=== PATIENT | male | born 1935 | race Caucasian/White ===

== ENCOUNTER → 2016-10-15 | Outpatient (CLI) | payer OTHER, MEDICARE | LOC: MMPC 09:00 | PROVIDERS: ATTEND Family Medicine | DX: H02.825 Cysts of left lower eyelid (principal) | CPT/HCPCS: 99212; G0463 ==

== ENCOUNTER 2018-11-29 15:15 | Inpatient (IN) ==
[2018-11-29] MEDS ORDERED: IPRATROPIUM/ALBUTEROL SULFATE 3 ML NEB NEB ONE (15:57)
[2018-11-29] MEDS ORDERED: Sodium Chloride 0.9% 1,000 ML PRIMARY IV ONE (15:57)
--- NOTE | 2018-11-29 16:20 | EKG ---
[address] [address] Measurements Intervals [place] Rate: 84 P: 76 NC: 169 QRS: 73 QRSD: 80 T: 71 QT: 331 QTc: 372 Interpretive Statements SINUS RHYTHM No previous ECG available for comparison Electronically Signed On 11-29-18 17:19:34 MDT by Elroy Gramajo [email or web address]
--- NOTE | 2018-11-29 17:00 | DI ---
XR CXR 2VW PA/LAT,11/29/2018 3:57 PM: Clinical History: Cough and dyspnea. Previous Exam: None at this facility. Findings: PA and lateral views of the chest are obtained, and demonstrate some mild increased interstitial sim ings and airspace disease. Skeletal structures are unremarkable. There is no effusion. The cardiomediastinum is unremarkable. Impression: Increased density within left lower lobe worrisome for an early left lower lobe pneumonia.
--- NOTE | 2018-11-29 17:03 | DI ---
XR SHOULDER MIN 2VW,11/29/2018 4:10 PM: Clinical History: Right shoulder pain Previous Exam: March 30, 2008 Findings: 4 views of the right shoulder are obtained, and demonstrate anatomic alignment without fractures. The re is mild diffuse osteopenia. There is stable calcific tendinitis. Mild degenerative changes of the acromioclavicular joint are seen. The adjacent right lung and chest wall are unremarkable. Impression: No fracture.
[2018-11-29 17:08] LABS: BLOOD UREA NITROGEN 28 mg/dL (7-22); BUN/CREATININE RATIO 23.33 (6-20); SERUM ALBUMIN 4.1 g/dL (3.5-4.8)
--- NOTE | 2018-11-29 17:13 | DI ---
CT Head WO Contrast,11/29/2018 4:03 PM: Clinical History: Status post fall Previous Exam: None at this facility. Findings: Multiple helically acquired CT images are obtained through the brain without contrast, and demonstrat e mild diffuse age-related volume loss. There is no mass, hemorrhage nor midline shift. There is mucoperiosteal thickening involving the left maxillary sinus with near-complete opacificatio n. Intraorbital structures are unremarkable. No fractures are seen. Impression: 1. No acute intracranial pathology. 2. Left maxillary sinusitis.
[2018-11-29 17:27] LABS: VENOUS PH 7.45 (7.32-7.42)
[2018-11-29 17:40] LABS: BASOPHILS # (AUTO) 0.03 10*3/UL; BASOPHILS % (AUTO) 0.2 % (0-1); EOSINOPHILS # (AUTO) 0.12 10*3/UL; EOSINOPHILS % (AUTO) 0.9 % (0-8); Hematocrit [HCT] 40.1 % (42.0-52.0); Hemoglobin [HGB] 13.4 g/dL (14.0-18.0); LYMPHOCYTES # (AUTO) 1.83 10*3/uL; MEAN CORPUSCULAR HGB CONC 33.4 g/dL (33-37); MEAN CORPUSCULAR VOLUME 90.7 FL (80-90); MEAN PLATELET VOLUME 9.2 FL (7.4-12.2); MONOCYTES # (AUTO) 1.04 10*3/UL (0.3-0.8); MONOCYTES % (AUTO) 8.2 % (5-15); NEUTROPHILS # (AUTO) 9.58 10*3/UL; NEUTROPHILS % (AUTO) 75.8 % (50-80); PLATELET MORPHOLOGY COMMENT NORMAL MORPHOLOGY (NORM); RBC MORPHOLOGY COMMENT NORMAL MORPHOLOGY (NORM); RED BLOOD COUNT 4.42 10^6/uL (4.70-6.10); WBC MORPHOLOGY COMMENT NORMAL MORPHOLOGY (NORM)
[2018-11-29] MEDS ORDERED: cefTRIAXone Inj 2 GM in Sodium Chloride 0.9% 100 ML IV ONE (18:12)
[2018-11-29 18:44] LABS: BILIRUBIN,URINE NEGATIVE (NEG); CLARITY,URINE CLEAR (CLEAR); COLOR,URINE YELLOW (Y); GLUCOSE, URINE (UA) NEGATIVE (NEG); OCCULT BLOOD,URINE Trace-lysed (NEG); PH,URINE 5.5 (5.0-8.5); PROTEIN,URINE 100 mg/dl (NEG)
[2018-11-29 18:49] LABS: RBC,URINE 0-1 /hpf; SQUAMOUS EPITHELIAL CELL,UR RARE; URINE SAMPLE TYPE VOIDED SPECIMEN
[2018-11-29] MEDS ORDERED: LIDOCAINE W/ SODIUM BICARB 0.5 ML SYR SUBD PRN (19:39)
[2018-11-29] MEDS: Sodium Chloride 0.9% 1,000 ML PRIMARY IV SCH (19:55)
--- NOTE | 2018-11-29 20:24 | PDOC ---
HPI - History of Present Illness Date of Service: 11/29/18 Time of Service: 20:00 Chief Complaint: Shortness of breath of 2 weeks' duration History of Present Illness: This is an 83 years old male with medical history significant for history of hypertension, diabetes,hyper lipidemia and hypothyroidism who came into the hospital with history of shortness of breath has been going on for about 2 weeks he said he feels that he is not getting enough air, there is some cough with some phlegm production and intermittent fever. He Said he is somewhat off balance the last 2 weeks and he fell about 2 weeks ago and injured his right shoulder. Because of all the symptoms he came into the hospital. According to ER physician he was wheezing he received a breathing treatment. He said he feels better his breathing is better after the breathing treatment. He said he has a history of asthma since childhood and he's been using his inhaler multiple times a day. It's Not helping much. There is no chest pain. X ray Suggest early pneumonia and hence the admission. He said he's been using his ski poles the last 2 weeks to walk to maintain his balance. Past Medical History Medical History: 1. History of asthma he said since childhood. 2. History of diabetes. 3. History of hyperlipidemia. 4. History of hypertension. 5. History of hypothyroidism Surgical History: 1. History of inguinal hernia. 2. History of tonsillectomy Family History: Reviewed an Not Pertinent Past Social History: Doesn't smoke, doesn't drink, no drugs. Lives with his . Tobacco Use: Never Smoker Do you dip or chew tobacco: Yes (1 dip every few days) In the Past 12 Months, Have Used or Abuse Any of the Following Substance: None Medication / Allergies Home Medications: Home Medications Medication Instructions Recorded Confirmed Centrum Complete Multivit Tab 1 ea PO QOD #30 12/16/11 11/29/18 [place]-3 Fatty Acids/Fish Oil [Fish 1 ea PO BID #30 12/16/11 11/29/18 Oil Softgel] Lancets [Freestyle Lancets] 1 ea MC 6XD #300 ea 01/12/14 11/29/18 Blood Sugar Diagnostic [Freestyle 1 ea IN 6XD #300 strip 01/18/15 11/29/18 Test Strips] celecoxib 200 mg capsule 200 mg PO QDAY 03/03/17 11/29/18 metformin 500 mg tablet 500 mg PO BID #180 tab 11/15/17 11/29/18 atorvastatin 20 mg tablet 20 mg PO QD #90 tab 03/14/18 11/29/18 albuterol sulfate HFA 90 1 puff INH Q6H #1 inhaler 04/13/18 11/29/18 mcg/actuation aerosol inhaler insulin glargine (U-100) 100 30 unit SUBCUT QDAY #15 ml 05/25/18 11/29/18 unit/mL (3 mL) subcutaneous pen lisinopril 5 mg tablet 5 mg PO QD #90 tab 06/13/18 11/29/18 ferrous gluconate 324 mg (36 mg 324 mg PO QDAY #90 tab 07/27/18 11/29/18 iron) tablet Fluticasone/Salmeterol [Advair 2 puff IH BID 11/29/18 11/29/18 250-50 Diskus] Allergies/Adverse Reactions: Allergies Allergy/AdvReac Type Severity Reaction Status Date / Time No Known Drug Allergies Allergy NOT Verified 11/30/18 06:25 APPLICABLE Review of Systems - Review of Systems All Systems: Reviewed & No Additional Complaints Except as Stated Exam - Vitals Vital Signs: Vital Signs Temperature 100.7 F Temperature Source Temporal Artery Scan Pulse Rate [Pulse Oximeter 96 Right] Pulse Rate 98 Respiratory Rate 20 Blood Pressure [Left Arm] 154/81 Pulse Ox 100 Oxygen Delivery Method Room Air Height 5 ft 7 in Weight 158 lb 3.2 oz - General General Appearance: No Acute Distress, Cooperative - Head Head Exam: Normal Inspection - Eye Eye Exam: POSITIVE: Normal Appearance - ENT ENT Exam: POSITIVE: Normal Exam - Neck Neck Exam: Normal Inspection - Respiratory Additional Respiratory Exam Details: Some wheezing here in the right lower lung base. Decreased breath sound on the left side. - Cardiovascular Cardiovascular Exam: POSITIVE: RRR - GI/Abdominal GI/Abdominal Exam: POSITIVE: Normal Bowel Sounds, Non Tender, Non Distended, Soft, No Organomegaly - Rectal Rectal Exam: POSITIVE: Deferred - External Exam: POSITIVE: Deferred - Extremities Extremities Exam: POSITIVE: Normal Inspection - Back Back Exam: POSITIVE: Normal Inspection - Neurological Neurological Exam: POSITIVE: Alert, Oriented x 3, CN II-XII Intact, No Facial Droop, Speech Intact / Clear - Psychiatric Psychiatric Exam: POSITIVE: Normal Affect Results - Labs CBC and BMP: 11/30/18 04:45 11/30/18 04:45 - EKG Data -: EKG Interpreted by Me Rate: Normal EKG Shows Normal: Sinus Rhythm - EKG Data EKG Interpretation: Normal EKG - Imaging Status: Report Reviewed by Me (CT head no acute intracranial pathology Chest X ray Increased density within left lower lobe worrisome for an early left lower lobe pneumonia.) Assessment and Plan - Patient Problems (1) Pneumonia Current Visit: Yes Status: Acute Comment: I think will treat him as such with the Rocephin and Zithromax. he is been falling the last few weeks, his CT head is negative will ask PT/OT to work with him. Code(s): J18.9 - Pneumonia, unspecified organism (2) Asthma Current Visit: No Status: None Comment: There is probably an element of exacerbation of his asthma likely secondary to pneumonia. Continue breathing treatment will give him some steroid also. (3) Type 2 diabetes mellitus without complication Current Visit: No Status: Acute Onset Date: 03/13/15 Comment: Continue with Lantus and put him also on sliding scale because of the steroid. 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
[2018-11-29] MEDS: methylPREDNISolone 40 MG/1 ML VIAL IVP SCH (20:29)
[2018-11-29] MEDS: Insulin Glargine SoloStar Inj 100 UNIT/ML INSULN.PEN SUBCUT SCH (20:29)
[2018-11-29] MEDS: ATORVASTATIN 20 MG TABLET PO SCH (20:30)
[2018-11-29] MEDS ORDERED: metFORMIN 500 MG TABLET PO SCH (21:00)
[2018-11-29] MEDS: FLUTICASONE/SALMETEROL 250/50 UD INHALER INH SCH (22:10)
--- NOTE | 2018-11-30 03:35 | PDOC ---
Dyspnea HPI - General Chief Complaint: Dyspnea Stated Complaint: dyspnea, asthma, frequent falls, shoulder pain Date Seen by Provider: 11/29/18 Time Seen by Provider: 15:45 Source: POSITIVE: Patient, Spouse Exam Limitations: POSITIVE: No limitations Treatment Prior to Arrival: REPORTS: None Nurse's Notes Reviewed & Considered: Yes - History of Present Illness Initial Comments: The patient is an 83-year-old male who is brought to the emergency room by his . Patient states that "my asthma is getting worse". Patient states he has an history of asthma for which he takes Advair HFA 2 puffs twice daily and he also takes Ventolin inhaler on a P what are and basis. Patient states that he's been progressively short of breath and has uses inhaler about 10 times today. He had a fever of 101 earlier this evening. He has a cough productive of mucoid sputum. No chest pain. He states he has been wheezing. He also states that he has been "falling" lately. He states that it appears to him that when he stops he couldn't continues propelling forward and he loses his balance. He fell about a week ago and injured his right shoulder and he complains of pain over the area of the right humeral head. No chills. History of diabetes mellitus. Body Location Affected: REPORTS: Chest Timing: REPORTS: Gradual, Getting Worse Duration: >24 hours (2-3 days) Severity: Moderate Quality: REPORTS: "Pain" (Pain to right shoulder after falling a week ago) Initiating Event: REPORTS: Upper Respiratory Illness Context: REPORTS: Exertion (Dyspnea on exertion) Exacerbated By: REPORTS: Exertion, Coughing Associated Symptoms: REPORTS: Fever Similar Symptoms Previously: No Recently seen/treated/hospitalized: No Any Prior Injuries Related to Current Complaint?: No - Patient Home Medications Home Medications: Home Medications Centrum Complete Multivit Tab 1 ea PO QOD #30 12/16/11 [place]-3 Fatty Acids/Fish Oil [Fish Oil Softgel] 1 ea PO BID #30 12/16/11 Lancets [Freestyle Lancets] 1 ea MC 6XD #300 ea 01/12/14 Blood Sugar Diagnostic [Freestyle Test Strips] 1 ea IN 6XD #300 strip 01/18/15 celecoxib 200 mg capsule 200 mg PO QDAY 03/03/17 metformin 500 mg tablet 500 mg PO BID #180 tab 11/15/17 atorvastatin 20 mg tablet 20 mg PO QD #90 tab 03/14/18 albuterol sulfate HFA 90 mcg/actuation aerosol inhaler 1 puff INH Q6H #1 inhaler 04/13/18 insulin glargine (U-100) 100 unit/mL (3 mL) subcutaneous pen 30 unit SUBCUT QDAY #15 ml 05/25/18 lisinopril 5 mg tablet 5 mg PO QD #90 tab 06/13/18 ferrous gluconate 324 mg (36 mg iron) tablet 324 mg PO QDAY #90 tab 07/27/18 Fluticasone/Salmeterol [Advair 250-50 Diskus] 2 puff IH BID 11/29/18 - Patient Allergies Allergies/Adverse Reactions: Allergies Allergy/AdvReac Type Severity Reaction Status Date / Time No Known Drug Allergies Allergy NOT Verified 11/29/18 15:16 APPLICABLE Past Medical History - heen HEENT History: Hard of Hearing Cardiovascular History: Hyperlipidemia Respiratory History: Asthma Gastrointestinal History: GERD Genitourinary History: Renal Disease Endocrine History: Type 2 Diabetes (oral) Musculoskeletal History: Denies History Neurological History: Other (please comment) Additional Neurological History: memory loss Blood Disorders: Denies History Psychiatric History: Denies History History of Sexually Transmitted Diseases: No Male Reproductive History: Denies History Cancer History: Denies History In Past Year Been Physically Harmed or Verbally Threatened: No History of MDRO: No History of Other Communicable Diseases: No Tobacco Use: Never Smoker Alcohol Use: None In the Past 12 Months, Have Used or Abuse Any Substance: None Previous Surgical History: Yes Type / Date of Surgery: double hernia, prostate Significant Family History: No pertinent family hx Past Medical History Reviewed: Reviewed - No Changes ROS - Limitations ROS Limitations: No Limitations Cardiovascular: REPORTS: Denies Cardiac Symptoms Respiratory: REPORTS: Cough Productive, Shortness Of Breath, Wheezing Neurological: REPORTS: Denies Neuro Symptoms Gastrointestinal: REPORTS: Denies GI Symptoms Endocrine: REPORTS: Denies Symptoms Musculoskeletal: REPORTS: Denies MS Symptoms Genitourinary: REPORTS: Denies Symptoms Eyes: REPORTS: Denies Symptoms ENT: REPORTS: Denies Symptoms Skin: REPORTS: Denies Skin Symptoms Lympathic: REPORTS: Denies Lympathic Symptoms Immunologic: POSITIVE: Denies Symptoms Psychiatric: POSITIVE: Denies Psych Symptoms Dyspnea Physical Exam - General Appearance General Appearance: REPORTS: Alert, Cooperative, No Acute Distress, No Evidence of Trauma - HEENT HEENT: POSITIVE: Head Inspection Nml, Eyes Inspection Nml, Ears Inspection Nml, Nose Inspection Nml, Oral/Dental Inspect. Nml, Pharynx Inspect. Nml, PERRL, EOMI - Neck Neck: REPORTS: Normal Inspection, No Carotid Bruit - Respiratory Respiratory: REPORTS: No Pleuritic Chest Pain, Speaks Full Sentences, No Pain on Inspiration, Wheezes, Rales. DENIES: No Respiratory Distress (Mild), Breath Sounds Normal (Wheezing, expiratory, right and left lung coffey with rales left lung base), Respiratory Distress (Mild) - Cardiovascular Cardiovascular: REPORTS: Regular Rate and Rhythm, Heart Sounds Normal, Equal Pulses, Strong Pulses, No Murmur, No Gallop, No Friction Rub, No JVD Peripheral Pulses: Radial (R): 2+, Radial (L): 2+ - Abdomen Abdomen: Soft: (All Quadrants), Normal Bowel Sounds: (All Quadrants), Denies Tenderness: (All Quadrants), No Splenomegaly: (All Quadrants), No Hepatomegaly: (All Quadrants), No Guarding: (All Quadrants), No Rebound: (All Quadrants), No Palpable Pulse: (All Quadrants), No Palpabale Mass: (All Quadrants), No Distention: (All Quadrants), No Rigidity: (All Quadrants) - Skin Skin: REPORTS: Intact, Normal For Race, Warm, Dry, No Rash - Extremities Extremity: Non-Tender: (LUE), (RLE), (LLE), Normal ROM: (All Extremities), No rmal Inspection: (All Extremities) Additional Extremities Details: Extremity examination normal except for some pain on direct palpation right shoulder over area and will head laterally. Range of motion is intact. No deformities. No sensory motor or vascular deficits. 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 X-ray right shoulder shows no fractures or dislocations. CT scan head without contrast normal Lab Results Reviewed by Me: Yes CBC and BMP: 11/29/18 17:25 11/29/18 16:20 Lab Results:: Laboratory Results 11/29/18 11/29/18 11/29/18 16:20 16:20 16:20 WBC RBC Hgb Hct MCV MCH MCHC RDW Std Deviation RDW Coeff of Abdoulaye Plt Count MPV Immature Gran % (Auto) Neut % (Auto) Lymph % (Auto) [place] % (Auto) Eos % (Auto) Baso % (Auto) Immature Gran # (Auto) Neut # (Auto) Lymph # (Auto) [place] # (Auto) Eos # (Auto) Baso # (Auto) WBC Morphology Comment Plt Morphology Comment RBC Morph Comment PT INR D-Dimer VBG pH VBG pCO2 VBG HCO3 VBG Base Excess Sodium Potassium Chloride Carbon Dioxide Anion Gap BUN Creatinine BUN/Creatinine Ratio Glucose Calculated Osmolality Lactic Acid 1.0 Calcium Magnesium 1.9 Total Bilirubin AST ALT Alkaline Phosphatase Troponin I < 0.012 C-Reactive Protein 16.8 H NT-Pro-B Natriuret Pep 70.2 Total Protein Albumin Globulin Albumin/Globulin Ratio Ur Collection Type Urine Color Urine Clarity Urine pH Ur Specific [place] Urine Protein Urine Glucose (UA) Urine Ketones Urine Occult Blood Urine Nitrate Urine Bilirubin Urine Urobilinogen Ur Leukocyte Esterase Urine RBC Urine WBC Ur Squamous Epith Cells Ur Renal Epithelial Cell Urine Crystals Urine Bacteria Urine Casts Urine Mucus Urine Trichomonas Urine Yeast Ur Culture Indicated? 11/29/18 11/29/18 11/29/18 16:20 16:23 17:25 WBC RBC Hgb Hct MCV MCH MCHC RDW Std Deviation RDW Coeff of Abdoulaye Plt Count MPV Immature Gran % (Auto) Neut % (Auto) Lymph % (Auto) [place] % (Auto) Eos % (Auto) Baso % (Auto) Immature Gran # (Auto) Neut # (Auto) Lymph # (Auto) [place] # (Auto) Eos # (Auto) Baso # (Auto) WBC Morphology Comment Plt Morphology Comment RBC Morph Comment PT 15.3 H INR 1.33 D-Dimer VBG pH 7.45 H VBG pCO2 37 L VBG HCO3 26 VBG Base Excess 2 Sodium 139 Potassium 4.6 Chloride 104 Carbon Dioxide 25 Anion Gap 10 BUN 28 H Creatinine 1.2 BUN/Creatinine Ratio 23.33 H Glucose 141 H Calculated Osmolality 295.0 H Lactic Acid Calcium 9.7 Magnesium Total Bilirubin 0.7 AST 32 ALT 17 L Alkaline Phosphatase 105 Troponin I C-Reactive Protein NT-Pro-B Natriuret Pep Total Protein 8.1 H Albumin 4.1 Globulin 4.0 Albumin/Globulin Ratio 1.00 L Ur Collection Type Urine Color Urine Clarity Urine pH Ur Specific [place] Urine Protein Urine Glucose (UA) Urine Ketones Urine Occult Blood Urine Nitrate Urine Bilirubin Urine Urobilinogen Ur Leukocyte Esterase Urine RBC Urine WBC Ur Squamous Epith Cells Ur Renal Epithelial Cell Urine Crystals Urine Bacteria Urine Casts Urine Mucus Urine Trichomonas Urine Yeast Ur Culture Indicated? 11/29/18 11/29/18 11/29/18 17:25 18:20 18:28 WBC 12.65 H RBC 4.42 L Hgb 13.4 L Hct 40.1 L MCV 90.7 H MCH 30.3 MCHC 33.4 RDW Std Deviation 43.2 RDW Coeff of Abdoulaye 13.2 Plt Count 242 MPV 9.2 Immature Gran % (Auto) 0.4 Neut % (Auto) 75.8 Lymph % (Auto) 14.5 [place] % (Auto) 8.2 Eos % (Auto) 0.9 Baso % (Auto) 0.2 Immature Gran # (Auto) 0.05 Neut # (Auto) 9.58 Lymph # (Auto) 1.83 Avery # (Auto) 1.04 H Eos # (Auto) 0.12 Baso # (Auto) 0.03 WBC Morphology Comment Normal morphology Plt Morphology Comment Normal morphology RBC Morph Comment Normal morphology PT INR D-Dimer 548 H VBG pH VBG pCO2 VBG HCO3 VBG Base Excess Sodium Potassium Chloride Carbon Dioxide Anion Gap BUN Creatinine BUN/Creatinine Ratio Glucose Calculated Osmolality Lactic Acid Calcium Magnesium Total Bilirubin AST ALT Alkaline Phosphatase Troponin I C-Reactive Protein NT-Pro-B Natriuret Pep Total Protein Albumin Globulin Albumin/Globulin Ratio Ur Collection Type Voided specimen Urine Color Yellow Urine Clarity Clear Urine pH 5.5 Ur Specific [place] 1.020 Urine Protein 100 A Urine Glucose (UA) Negative Urine Ketones Trace A Urine Occult Blood Trace-lysed H Urine Nitrate Negative Urine Bilirubin Negative Urine Urobilinogen 2.0 Ur Leukocyte Esterase Negative Urine RBC 0-1 Urine WBC None Ur Squamous Epith Cells Rare Ur Renal Epithelial Cell None Urine Crystals None Urine Bacteria None Urine Casts None Urine Mucus None Urine Trichomonas None Urine Yeast None Ur Culture Indicated? Culture not set EKG Interpreted/Reviewed By Me:: Yes (normal) EKG Interpretation:: POSITIVE: Normal Sinus Rhythm, Normal Rate, Normal Intervals, Normal [place], Normal QRS, Normal ST/T - Patient's Progress Pain Medication Addressed: POSITIVE: Not Applicable School/Work Release Addressed: POSITIVE: Not Applicable Re-Examine Time: 18:00 Re-Examine Comment: 2 blood cultures drawn and patient given 2 g Rocephin IV. Case was discussed with Dr. Gongora with admitting diagnosis being pneumonia. Patient admitted by Dr. Gongora for further evaluation and treatment. Status: POSITIVE: Unchanged, Re-Examined - Consult Consult (If Yes, Name of Consulting MD & Time Called): Yes (Dr. Gongora, hospitalist, 1800) Consulting MD will see pt:: [place]ITIVE[place] [facility] [place] Counseled: POSITIVE: Patient, RE: Lab Results, RE: Radiology Results, RE: DX, RE: Need for F/U Patient Care Time - Estimated PCT Patient Care Time (In Minutes): 45 Vital Signs - VS Reviewed Vital Signs Reviewed: Yes Discharge Clinical Impression: Pneumonia, Right shoulder strain, Balance disorder Discharge Disposition: Admit to Inpatient Condition: Stable Patient Problem(s) Reviewed: Yes Date Decision to Admit to Inpatient: 11/29/18 Time Decision to Admit to Inpatient: 18:00
[2018-11-30] MEDS: Sodium Chloride 0.9% 1,000 ML PRIMARY IV SCH ×3 (04:23→20:18)
[2018-11-30 05:25] LABS: BASOPHILS # (AUTO) 0.01 10*3/UL; BASOPHILS % (AUTO) 0.1 % (0-1); EOSINOPHILS # (AUTO) 0.01 10*3/UL; EOSINOPHILS % (AUTO) 0.1 % (0-8); Hematocrit [HCT] 35.3 % (42.0-52.0); Hemoglobin [HGB] 11.8 g/dL (14.0-18.0); LYMPHOCYTES # (AUTO) 0.75 10*3/uL; MEAN CORPUSCULAR HGB CONC 33.4 g/dL (33-37); MEAN CORPUSCULAR VOLUME 91.2 FL (80-90); MEAN PLATELET VOLUME 9.4 FL (7.4-12.2); MONOCYTES # (AUTO) 0.09 10*3/UL (0.3-0.8); MONOCYTES % (AUTO) 0.9 % (5-15); NEUTROPHILS # (AUTO) 9.09 10*3/UL; NEUTROPHILS % (AUTO) 91.2 % (50-80); RED BLOOD COUNT 3.87 10^6/uL (4.70-6.10)
[2018-11-30 05:27] LABS: PLATELET MORPHOLOGY COMMENT NORMAL MORPHOLOGY (NORM); RBC MORPHOLOGY COMMENT NORMAL MORPHOLOGY (NORM); WBC MORPHOLOGY COMMENT NORMAL MORPHOLOGY (NORM)
[2018-11-30 05:38] LABS: BLOOD UREA NITROGEN 24 mg/dL (7-22)
[2018-11-30] MEDS: methylPREDNISolone 40 MG/1 ML VIAL IVP SCH (07:16)
[2018-11-30] MEDS: Insulin Lispro Flexpen 300 UNIT/3 ML INSULN.PEN SUBCUT SCH ×5 (07:17→20:27)
[2018-11-30] MEDS: IPRATROPIUM/ALBUTEROL SULFATE 3 ML NEB NEB SCH ×3 (07:42→19:29)
[2018-11-30] MEDS: FLUTICASONE/SALMETEROL 250/50 UD INHALER INH SCH (07:44)
[2018-11-30] MEDS ORDERED: Hold Metformin-See Instruction 1 EACH MIS PRN (08:07)
--- NOTE | 2018-11-30 08:16 | PDOC(PROG) ---
Date of Service: 11/30/18 Time of Service: 08:15 Interval History: Subjective He said his breathing is somewhat better compared to when he came in but he still feels that he can't take a full deep breath. No pain. Cough is somewhat better. Objective : Data - Labs CBC and BMP: 11/30/18 04:45 11/30/18 04:45 Objective : Exam - General General Appearance: No Acute Distress, Cooperative - Head Head Exam: Normal Inspection - Eye Eye Exam: Normal Appearance - ENT ENT Exam: Normal Exam - Neck Neck Exam: Normal Inspection - Respiratory Additional Respiratory Exam Details: Still occasional wheezing heard - Cardiovascular Cardiovascular Exam: RRR - GI/Abdominal GI/Abdominal Exam: Normal Bowel Sounds, Non Tender, Non Distended, Soft, No Organomegaly - Rectal Rectal Exam: Deferred - External Exam: Deferred - Extremities Extremities Exam: Normal Inspection - Back Back Exam: Normal Inspection - Neurological Neurological Exam: Alert, Oriented x 3, CN II-XII Intact, No Facial Droop, Speech Intact / Clear, Moves All Extremities Equally - Psychiatric Psychiatric Exam: Normal Affect Assessment and Plan - Patient Problems (1) Pneumonia Current Visit: Yes Status: Acute Comment: I think we'll keep him another night continue IV antibiotics for another night. His d-dimer is slightly elevated so may be secondary to infection but since he still feels short of breath I think will do a CTA of his chest Code(s): J18.9 - Pneumonia, unspecified organism (2) Asthma Current Visit: No Status: None Comment: I think there is an elements of exacerbation secondary to the pneumonia continue antibiotics. We did give him a steroid. I think we'll see what his blood sugar during day and then will decide if we need to continue with it or not. Continue bronchodilator treatment. (3) Type 2 diabetes mellitus without complication Current Visit: No Status: Acute Onset Date: 03/13/15 Comment: Continue Lantus and sliding scale. 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
--- NOTE | 2018-11-30 09:34 | DI ---
CT CTA Chest Non-Coronary WWO,11/30/2018 8:07 AM: Clinical History: Chest pain and shortness of breath. Previous Exam: None at this facility. Findings: Multiple helically acquired CT images are obtained through the chest following intravenous administra tion of 65 cc of Ultravist 370, and demonstrate normal pulmonary arteries without filling defect or t runcation to suggest pulmonary embolism. There is airspace disease within the left lung base. There is also airspace disease within the right lung apex (image 25 series 3.) Skeletal structures are unremarkable. There is a large hiatal hernia. Impression: Airspace disease within the left lung base and within the right lung apex. This most likely represent s pneumonia. Recommend followup imaging after treatment to document resolution. No evidence of pulmonary embolism.
[2018-11-30] MEDS: CELECOXIB 200 MG CAPSULE PO SCH (10:02)
[2018-11-30] MEDS: LISINOPRIL 5 MG TABLET PO SCH (10:02)
--- NOTE | 2018-11-30 15:02 | PTI REPORT ---
Thank you for the referral of Pan Carrasquillo. He was seen on 11/30/18 for an inpatient evaluation secondary to weakness. SUBJECTIVE: The patient is an 83-year-old male who states over the last couple of weeks he has been having increased difficulties with breathing and also states that over the last three weeks he has been having decreased balance reaction and multiple falls. The patient states that he does have a history of asthma and associated some of his breathing difficulties with that but has since presented to the hospital and states that he has been diagnosed with pneumonia. The patient reports that around the same time he was starting to have some breathing difficulties, which he has had before, he did start to notice he was very off balance. He states that this is something newer. He has been having a lot of falls, especially trying to get out of the tub and states that when he starts walking, he feels like when he goes to stop, he is unable to stop. He states that he does get lightheaded when he is up and moving as well. He states that he has been using ski poles lately with walking and it has been very helpful. The patient states that he lives here in [place]. He lives with his . They only have stairs to go to their basement but he does go down their daily to empty out their dehumidifier. The patient reports that his has also had quite a few falls and they are having difficulties as neither one can get the other one up off of the floor when they do fall. PAST MEDICAL HISTORY: Past medical history can be found in the patient's medical record. OBJECTIVE FINDINGS: General observations: The patient was alert and oriented to setting upon PT arrival. The patient was up in bed. He did have SCDs on and was on room air at 93%. Bed mobility: The patient was able to transfer from supine to seated position with stand by assist x1 for safety. The patient demonstrated good seated balance. Strength: The patient demonstrated 4/5 bilateral lower extremity strength with manual muscle test. Transfers: The patient was able to transfer from sitting to standing with contact guard assist x1 for safety. The patient demonstrated fair standing balance with increasing his base of support. Balance: The therapist did take the patient through a balance test. The patient did well with eyes open with his regular base of support. He did struggle a little bit when we narrowed his base of support, but was still able to maintain his balance with just a slight sway. The patient did struggle a little bit more when he performed both tests again with eyes closed, but had no loss of balance. On an uneven surface, the patient had increased sway but no loss of balance. With the stepping test, the patient did have a slight drift to the left, possibly indicating that he might have a hypo-function of his left side which may be contributing to some of his balance issues when he is up and moving. We will further address that with some of our therapy. Ambulation: The patient is able to ambulate 150 feet without an assistive device with contact guard assist x1 for safety. He demonstrated no loss of balance with his ambulatory activity. ASSESSMENT: The patient has good rehab potential. Problem List: Poor balance reaction History of multiple falls over the last few weeks Weakness Short-Term Goals: To be met by discharge from inpatient: Patient will be able to tolerate 30 minutes of physical therapy activity to work on his balance and general strengthening. Patient will be able to return back home safely and perform ambulatory and stair activity without any difficulties. Long-Term Goals: To be met following discharge from inpatient: Depending on how the patient responds to our therapy and his fall risk, we may look into getting outpatient physical therapy orders to further work on his balance. TREATMENT PLAN: Patient will be seen B.I.D during the week and one time per day over the weekend as an inpatient to address the above goals and objectives. INITIAL TREATMENT: Treatment today consisted of the initial evaluation. Following treatment the patient was left in bed with SCDs placed around his bilateral lower extremities, call light within reach, and bed alarm set. KASANDRA
--- NOTE | 2018-11-30 16:29 | OT.PROG ---
Progress Note Progress Note: S: pt reported that he started getting sick and the Jordi fair and then the converse count fair. He feels like his balance began to get bad at that time. O: pt was seen in his room and transferred to bathroom Ind and completed ADL dressing INd. He completed transfer to therapy Ind apprx 300 ft. He completed 8 min on Nu step to increase activity tolerance. He then completed x10 sit to stands, x10 sit to stands with 6# ball and x10 on Air ex. He then completed dynamic balance activity on air ex while tapping balloon back and forth above 90 deg of shoulder flex. PT took over treatment at this point. A: pt participated well and did need mod A to prevent fall during dynamic balance activity. He may continue to benefit from therapy to increase strength and overall activity tolerance. P: continue per POC.
--- NOTE | 2018-11-30 17:08 | PT.PROG ---
Progress Note Progress Note: S. Patient states he is feeling much better today compared to yesterday. O. Patient ambulated 175 feet to the therapy gym where he performed seated long arc quads, marches, ball squeezes, clam shells, resisted knee flexion all x 15 bilaterally. Balance grid x 3, balance activities 3x1 minute. Patient then ambulated 175 feet back to his room where he was left in bed with alarm and call light. A. patient tolerated therapy well this afternoon, he was able to perform all exercises with minimal balance deficits. Patient would continue to benefit from skilled therapy to increase strength, endurance and balance at this time. P. Continue POC.
[2018-11-30] MEDS: ADVAIR PO SCH (19:30)
[2018-11-30] MEDS: ATORVASTATIN 20 MG TABLET PO SCH (20:17)
[2018-11-30] MEDS: Insulin Glargine SoloStar Inj 100 UNIT/ML INSULN.PEN SUBCUT SCH (20:17)
[2018-11-30 21:09] VITALS: RESP 20
[2018-12-01] MEDS: IPRATROPIUM/ALBUTEROL SULFATE 3 ML NEB NEB SCH ×2 (01:39→06:33)
[2018-12-01 05:34] LABS: BLOOD UREA NITROGEN 27 mg/dL (7-22)
[2018-12-01] MEDS: Sodium Chloride 0.9% 1,000 ML PRIMARY IV SCH (06:01)
[2018-12-01] MEDS: ADVAIR PO SCH (06:34)
[2018-12-01] MEDS: CELECOXIB 200 MG CAPSULE PO SCH (08:29)
[2018-12-01] MEDS: LISINOPRIL 5 MG TABLET PO SCH (08:29)
[2018-12-01] MEDS: Insulin Lispro Flexpen 300 UNIT/3 ML INSULN.PEN SUBCUT SCH ×2 (08:30→11:35)
[2018-12-01 08:59] VITALS: BP 123/60; TEMP 97
[2018-12-01] MEDS ORDERED: cefTRIAXone Inj 2 GM in Sodium Chloride 0.9% 100 ML IV ONE (11:00)
--- NOTE | 2018-12-01 11:04 | DCSUMMARY ---
Hospitalization Summary Admit Date: 11/29/2018 Discharge Date: 12/01/18 Hospital Course: Discharge diagnoses 1. Pneumonia, left lung base and within the right lung apex. Need x-ray follow-up in 4 weeks 2. History of asthma 3. History of diabetes 4. Hyperlipidemia 5. Hypertension 6. History of hypothyroidism Hospital course This is a 83 years old male with medical history significant for history of hypertension, diabetes, hyperlipidemia and hypothyroidism who came to the hospital with history of shortness of breath has been going on for about 2 weeks. He said he feels that he is not getting enough air, there is some cough with some production and intermittent fever. He did say that he was somewhat off balance the last 2 week and he fell 2 weeks ago and hurt his right shoulder. Because of all the symptoms he came into the hospital. He Was wheezing when he came into the ER he received breathing treatment. He said after getting admitted to the floor his breathing was improving. His x-ray did show pneumonia in the left lung. His exam was remarkable for occasional wheeze. His d-dimer was elevated so we did a CTA of the chest there was no evidence of PE but the CT did show evidence of airspace disease within left lung base and within the right lung apex suggestive of pneumonia. They did recommend repeat imaging after treatment. He was treated with Rocephin and Zithromax. He was assessed by physical therapy and walked with them and on the day of discharge they felt that he is ready for discharge. On the day of discharge he felt a lot better he said compared to when he came in his saturation was normal on room air. We thought he could be discharged home on oral antibiotics and follow-up with the his PCP. We did give him a dose of steroid initially but his blood sugar went up so this was discontinued. Clinically he improved so we didn't think that there is a need for more steroid. He has inhalers at home and he doesn't think that he needs a nebulizer. He need follow-up with his primary and repeat x-ray in 4 weeks to ensure resolution. He did have an x-ray of his right shoulder when he came in and was done in the ER as he fell 2 weeks prior to the admission there was no evidence of fracture. He was complaining at times of some pain with ce rtain angle movement of the shoulder suggest maybe a rotator cuff injury. Suggested to treat that symptomatically and follow-up with his primary for it. Discharge instruction Diet regular Activity as tolerated Medications Home Medications Centrum Complete Multivit Tab 1 ea PO QOD #30 12/16/11 [Clinic Confirmed 11/29/18] [place]-3 Fatty Acids/Fish Oil [Fish Oil Softgel] 1 ea PO BID #30 12/16/11 [History Confirmed 11/29/18] Lancets [Freestyle Lancets] 1 ea MC 6XD #300 ea 01/12/14 [History Confirmed 11/29/18] Blood Sugar Diagnostic [Freestyle Test Strips] 1 ea IN TID #300 strip 01/18/15 [History Confirmed 11/30/18] metformin 500 mg tablet 500 mg PO BID #180 tab 11/15/17 [Rx Confirmed 11/29/18] atorvastatin 20 mg tablet 20 mg PO QD #90 tab 03/14/18 [Rx Confirmed 11/29/18] albuterol sulfate HFA 90 mcg/actuation aerosol inhaler 1 puff INH Q6H #1 inhaler 04/13/18 [Rx Confirmed 11/29/18] insulin glargine (U-100) 100 unit/mL (3 mL) subcutaneous pen 30 unit SUBCUT QDAY #15 ml 05/25/18 [Rx Confirmed 11/29/18] lisinopril 5 mg tablet 5 mg PO QD #90 tab 06/13/18 [Rx Confirmed 11/29/18] ferrous gluconate 324 mg (36 mg iron) tablet 324 mg PO QDAY #90 tab 07/27/18 [Rx Confirmed 11/29/18] Fluticasone/Salmeterol [Advair Hfa 230-21 Mcg Inhaler] 2 puff INHALATION BID 11/30/18 [History Confirmed 11/30/18] Levothyroxine Sodium 25 mcg PO DAILY 11/30/18 [History Confirmed 11/30/18] Azithromycin [Zithromax] 250 mg PO DAILY #4 tab 12/01/18 [Rx] Cefdinir Cap [Omnicef Cap] 300 mg PO BID #8 cap 12/01/18 [Rx] Follow-up with PCP in 1-2 weeks Condition at discharge was stable for discharge Exam - Vitals Vital Signs: Vital Signs Temperature 97 F Temperature Source Temporal Artery Scan Pulse Rate [Pulse Oximeter 79 Right] Pulse Rate [left finger] 75 Pulse Rate 70 Respiratory Rate 20 Blood Pressure [Left Arm] 123/60 Pulse Ox [left finger] 97 Pulse Ox 92 Oxygen Delivery Method [left Room Air finger] Oxygen Delivery Method Room Air Height 5 ft 7 in Weight 156 lb 9.6 oz - General General Appearance: No Acute Distress, Cooperative - Head Head Exam: Normal Inspection - Eye Eye Exam: POSITIVE: Normal Appearance - ENT ENT Exam: POSITIVE: Normal Exam - Neck Neck Exam: Normal Inspection - Respiratory Additional Respiratory Exam Details: Occasional wheezes but otherwise clear - Cardiovascular Cardiovascular Exam: POSITIVE: RRR - GI/Abdominal GI/Abdominal Exam: POSITIVE: Normal Bowel Sounds, Non Tender, Non Distended, Soft - Rectal Rectal Exam: POSITIVE: Deferred - External Exam: POSITIVE: Deferred - Extremities Extremities Exam: POSITIVE: Normal Inspection - Back Back Exam: POSITIVE: Normal Inspection - Neurological Neurological Exam: POSITIVE: Alert, Oriented x 3, CN II-XII Intact, No Facial Droop, Speech Intact / Clear, Moves All Extremities Equally - Psychiatric Psychiatric Exam: POSITIVE: Normal Affect - Integumentary Integumentary Exam: POSITIVE: Normal Color Patient Problems - Patient Problem List (1) Pneumonia Status: Acute Code(s): J18.9 - Pneumonia, unspecified organism Category: Medical (2) Asthma Status: None Category: Medical (3) Type 2 diabetes mellitus without complication Status: Acute Onset Date: 03/13/15 Code(s): E11.9 - Type 2 diabetes mellitus without complications Qualifiers: Diabetes mellitus intermediate insulin use: with lobsterman use Qualified Code(s): E11.9 - Type 2 diabetes mellitus without complications; Z79.4 - prison (current) use of insulin Category: Medical (4) Hyperlipidemia Status: Acute Onset Date: 10/22/11 Code(s): E78.5 - Hyperlipidemia, unspecified Qualifiers: Hyperlipidemia type: mixed hyperlipidemia Qualified Code(s): E78.2 - Mixed hyperlipidemia Category: Medical (5) Essential hypertension Status: Acute Onset Date: 03/13/15 Code(s): I10 - Essential (primary) hypertension Category: Medical
[2018-12-01 11:27] VITALS: O2SAT 94
--- NOTE | 2018-12-01 11:37 | OT.PROG ---
Progress Note Progress Note: S: pt reported that he is feeling much better and hopes he gets to go home today. O: pt was seen in his room and completed functional transfer to bathroom Ind. He completed transfer downstairs to therapy Ind. He completed sit to stands using 6# ball x10. He also completed dynamic activity on air ex while comp leting bicep flex/ shoulder flex x25 to also enhance balance. He then completed rows, shoulder ext x15 with GTB x15 in seated position. pt then completed functional transfer entire way back to therapy with no walking device. He was left in bed and nursing was notified. A: pt participated well and did not appear to have any loss of balance throughout activities. P: continue per POC/prepare for d/c.
--- NOTE | 2018-12-01 13:26 | PT.PROG ---
Progress Note Progress Note: S. Patient stated he is feeling good today. O. patient ambulated 175 feet to the therapy gym where he used the nu-step x 10 minutes, hurdles with airex x 4, 2 minutes balance on foam mat to challenge balance. Patient ambulated 175 feet back to his room where he was left with alarm and call light. A. Patient tolerated therapy well, he would benefit from outpatient therapy at this time. P. Patient has met all goals at this time.
--- NOTE | 2018-12-01 15:34 | OTI REPORT ---
Thank you for the referral of Pan Carrasquillo. He was seen on 11/30/18 for an occupational therapy inpatient evaluation secondary to weakness. SUBJECTIVE: The patient is an 83-year-old male who came into the hospital with difficulty breathing, falling, balance issues, and weakness. The patient was admitted. He does report that he has pneumonia. The patient reports a couple of weeks ago he noticed that his breathing was getting worse. The patient reports that when he is around [employer] fairs where there is a lot of dust, it seems to be when his problems flare up. The patient does report that he has fallen at least three times in the last couple of weeks. He states he doesn't technically get dizzy or the spins, he states he just gets lightheaded. The patient reports that when he is walking, he will be walking fairly well but then when he goes to stop, he feels like he falls forward. He does report that when he uses ski poles to walk he does much better and doesn't have those issues. The patient does live in [place]. He has stairs to his basement and two steps to get into his home. As of now, the patient is on room air with 93% oxygen saturation. PAST MEDICAL HISTORY: Past medical history can be found in the patient's medical record. OBJECTIVE FINDINGS: Range of motion/Strength: The patient demonstrates bilateral upper extremity range of motion that is within functional range. He has 4+/5 strength bilaterally. Activities of daily living: The patient is demonstrating independence with upper and lower extremity dressing. The patient was administered a shower chair due to his decrease his balance and his recent falls to make his showers safer. Endurance: The patient's activity tolerance has decreased. He is tolerating between 10-15 minutes of activity before needing a rest break. ASSESSMENT: Problem List: Decreased strength Decreased endurance Occupational Therapy Goals: To be met by discharge from inpatient: Patient will increase upper extremity strength to 5/5 bilaterally. Patient will increase activity tolerance with ADLs and iADLs to at least 30 minutes of activity at a time. TREATMENT PLAN: Patient will be seen B.I.D during the week and one time per day over the weekend as an inpatient to address the above goals and objectives. INITIAL TREATMENT: Treatment today consisted of the initial evaluation activities only. MTDD
== END 2018-12-01 13:00 | disposition home or self-care (01) | DRG 195 ==
LOC: ER 15:15 → MED/SURG 18:53
PROVIDERS: ADMIT Internal Medicine; ATTEND Internal Medicine